=== PATIENT | male | born 1955 | race Caucasian/White ===

== ENCOUNTER 2019-11-28 06:55 | Outpatient (NON) | payer MEDICARE, SELFPAY ==
[2019-11-28 20:34] LABS: SARS-CoV-2 RNA PCR Negative
== END 2019-11-28 06:56 ==
PROVIDERS: PCP Family Medicine; Visit Provider Family Medicine
DX: R09.89 Other specified symptoms and signs involving the circulatory and respiratory systems (principal); Z20.828 Contact with and (suspected) exposure to other viral communicable diseases
CPT/HCPCS: 87635; C9803; U0003

== ENCOUNTER → 2022-12-31 10:35 | Outpatient (CLI) | payer MEDICARE, SELFPAY ==
--- NOTE | ~2022-12-31 | XR_ITS ---
XR lumbar spine 2-3V DATE: 12/31/2022 10:56 INDICATION: Low back pain for 6 months. No injury. TECHNIQUE: AP, lateral, coned lateral lumbosacral views COMPARISON: None FINDINGS: Mild thoracolumbar dextroscoliosis. Normal alignment of the lumbar spine. There is moderate degenerative disc disease at L2-3 and mild degenerative disc disease at L3-4. Remai pako lumbar and lumbosacral interspaces appear well preserved. No fracture or bone destruction is detected. The lumbar pedicles are intact. The sacroiliac joints are intact. IMPRESSION: Moderate degenerative disc disease at L2-3 mild degenerative disc disease at L3-4 Reviewed, dictated and finalized at location L. IMPRESSION: Moderate degenerative disc disease at L2-3 mild degenerative disc d isease at L3-4
--- NOTE | ~2022-12-31 | XR_ITS ---
XR sacroiliac joints min 3V DATE: 12/31/2022 10:56 INDICATION: Low back pain for 3 months TECHNIQUE: AP and bilateral oblique views of the sacroiliac joints COMPARISON: None FINDINGS: No fracture or dislocation, erosive change or ankylosis is noted at the sacroiliac joints. IMPRESSION: Negative Reviewed, dictated and finalized at Location A. Reviewed, dictated and finalized at location L. IMPRESSION: Negative
== END ==
PROVIDERS: PCP Family Medicine; Visit Provider Nurse Practitioner
DX: M54.50 Low back pain, unspecified (principal); M51.36 Other intervertebral disc degeneration, lumbar region
CPT/HCPCS: 72100; 72202